=== PATIENT | female | born 1940 | race Caucasian/White ===

== ENCOUNTER → 2016-11-22 | Day surgery (SDC) | payer OTHER ==
[~2016-11-22] VITALS: Wt 59.9 kg
[~2016-11-22] MED LIST: ATORVASTATIN CA40 M1 PO; CARTIA XT240 MG PO; LAMICTAL25 MG PO; LISINOPRIL5 MG PO; MULTIVITAMINS1 EACH PO; PLAVIX75 M1 PO; VITAMIN D5000 I3 PO
--- NOTE | ~2016-11-22 | WILSON ---
[place], [place] CATARACT EXTRACTION NAME: BRANDON HAILE UNIT #: [id number] ROOM: DOCTOR: GABBY CHONG MD DATE: 11/22/16 PREOPERATIVE DIAGNOSIS: Cataract, left eye. POSTOPERATIVE DIAGNOSIS: Cataract, left eye. OPERATION: Extracapsular cataract extraction by phacoemulsification with posterior chamber intraocular lens implantation, left eye. ANESTHESIA: Monitored standby. OPERATIVE FINDINGS AND PROCEDURE: 2% Xylocaine topical anesthetic gel was applied to the eye in the preop area. The patient was taken to the operating room and prepped and draped in the standard fashion for sterile intraocular surgery. A time out procedure was performed verifying correct patient, correct site and corrects lens with Juwan Chong M.D. The operating microscope was swung into position and the lid speculum was inserted. Using a paracentesis blade, a paracentesis was made through clear cornea. Viscoelastic was used to fill the anterior chamber. Using a metal keratome a 2.4 mm self-sealing clear corneal cataract incision was made temporally at the limbus. Using a pre-bent 25 gauge cystotome needle, a standard continuous curvilinear capsulorrhexis was performed. The anterior capsule was removed with forceps. The lens nucleus was hydrodissected and phacoemulsified in the posterior chamber. Cortical material was removed with the irrigation aspiration hand piece and the posterior capsule was then polished with a curet under irrigation. The posterior chamber and capsular bag were filled with viscoelastic. A posterior chamber intraocular lens manufactured by: [employer], Model #[id number], and 23.0 diopters in strength was then inserted into the posterior chamber and within the capsular bag using the lens cartridge and injector system. Viscoelastic was removed using the irrigation aspiration handpiece. The anterior chamber was filled with balanced salt solution through the paracentesis. Both the paracentesis site and cataract incisions were hydrated with BSS and verified to be water-tight and self-sealing. Cefuroxime 1 mg/0.1 mL was injected into the anterior chamber through the paracentesis site. The incision checked to be water-tight using a Weck-yadiel sponge. The integrity of the cataract wound and ocular tension were checked. Lid speculum and drapes were removed. One drop of Ocuflox was applied to the eye. The patient was transferred from the operating room to the recovery room in satisfactory condition. GABBY BEST MD CM:OPRECORD:CATARACT EXTRACTION 05 05 GABBY CHONG MD 11/23/16 1219 ROSINA [email or web address]
[2016-11-22 09:19] VITALS: BP 157/65
[2016-11-22 11:01] VITALS: BP 153/72
[2016-11-22 11:16] VITALS: BP 149/68
[2016-11-22 11:31] VITALS: BP 149/74
== END | disposition home or self-care (01) ==
LOC: SDC 11-16 12:30
DX: H26.9 Unspecified cataract (principal); I10 Essential (primary) hypertension; Z86.73 Personal history of transient ischemic attack (TIA), and cerebral infarction without residual deficits; Z87.81 Personal history of (healed) traumatic fracture; Z90.710 Acquired absence of both cervix and uterus; Z82.49 Family history of ischemic heart disease and other diseases of the circulatory system; Z87.891 Personal history of nicotine dependence

== ENCOUNTER → 2016-12-20 | Day surgery (SDC) | payer OTHER ==
[~2016-12-20] VITALS: Ht 157.4 cm; Wt 59.9 kg
--- NOTE | ~2016-12-20 | O ---
[place], [place] OPERATIVE NOTE NAME: BRANDON HAILE UNIT #: [id number] ROOM: DOCTOR: GABBY BUI MD BIRTHDATE: [birth year] DOS: 12/20/2016 PREOPERATIVE DIAGNOSIS: Cataract, right eye. POSTOPERATIVE DIAGNOSIS: Cataract, right eye. OPERATION: Extracapsular cataract extraction by phacoemulsification with posterior chamber intraocular lens implantation, right eye. ANESTHESIA: Monitored standby. OPERATIVE FINDINGS AND PROCEDURE: 2% Xylocaine topical anesthetic gel was applied to the eye in the preop area. The patient was taken to the operating room and prepped and draped in the standard fashion for sterile intraocular surgery. A time out procedure was performed verifying correct patient, correct site and corrects lens with Juwan Bui M.D. The operating microscope was swung into position and the lid speculum was inserted. Using a Patricia paracentesis blade, a paracentesis was made through clear cornea. Viscoelastic was used to fill the anterior chamber. Using a metal keratome a 2.4 mm self-sealing clear corneal cataract incision was made temporally at the limbus. Using a pre-bent 25 gauge cystotome needle, a standard continuous curvilinear capsulorrhexis was performed. The anterior capsule was removed with forceps. The lens nucleus was hydrodissected and phacoemulsified in the posterior chamber. Cortical material was removed with the irrigation aspiration hand piece and the posterior capsule was then polished with a curet under irrigation. The posterior chamber and capsular bag were filled with viscoelastic. A posterior chamber intraocular lens manufactured by: [employer], Model #[id number], and 22.5 diopters in strength were then inserted into the posterior chamber and within the capsular bag using the lens cartridge and injector system. Viscoelastic was removed using the irrigation aspiration handpiece. The anterior chamber was filled with balanced salt solution through the paracentesis. Both the paracentesis site and cataract incisions were hydrated with BSS and verified to be water-tight and self-sealing. Cefuroxime 1 mg/0.1 mL was injected into the anterior chamber through the paracentesis site. The incision checked to be water-tight using a Weck-Belinda sponge. The integrity of the cataract wound and ocular tension were checked. Lid speculum and drapes were removed. The patient was transferred from the operating room to the recovery room in satisfactory condition. [place], [place] OPERATIVE NOTE NAME: BRANDON HAILE UNIT #: [id number] ROOM: DOCTOR: GABBY BUI MD BIRTHDATE: [birth year] GABBY BUI MD CM:OPRECORD:OPERATIVE NOTE 1353 1601 GABBY BUI MD 12/20/16 1601 interface
[2016-12-20 12:48] VITALS: BP 132/85
[2016-12-20 13:15] VITALS: BP 140/74
[2016-12-20 13:27] VITALS: BP 151/75
[2016-12-20 13:29] VITALS: BP 147/75
== END | disposition home or self-care (01) ==
LOC: SDC 12-18 12:30
DX: H26.9 Unspecified cataract (principal); E78.00 Pure hypercholesterolemia, unspecified; Z86.73 Personal history of transient ischemic attack (TIA), and cerebral infarction without residual deficits; Z90.710 Acquired absence of both cervix and uterus; Z98.890 Other specified postprocedural states; I10 Essential (primary) hypertension; Z87.891 Personal history of nicotine dependence; Z88.8 Allergy status to other drugs, medicaments and biological substances; Z82.49 Family history of ischemic heart disease and other diseases of the circulatory system; Z82.3 Family history of stroke

== ENCOUNTER → 2017-12-15 | Outpatient (CLI) | payer OTHER | END | disposition home or self-care (01) | LOC: LAB 07:57 | DX: E83.52 Hypercalcemia (principal) ==